=== PATIENT | female | born 1985 | race Caucasian/White ===

== ENCOUNTER 2016-08-25 19:05 | Emergency (ER) | payer OTHER ==
--- NOTE | 2016-08-25 20:46 | ED CLINICAL REPORT ---
Clinical Report - Physicians/Mid Levels [facility] [address] [place] [address] 08/25/2016 19:07 Patient: JEANNE RENEE Time Seen: 19:35; initial patient contact, initial documentation, patient care assumed. Arrived- By private vehicle. Historian- patient. HISTORY OF PRESENT ILLNESS Chief Complaint: FEVER. 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 The patient has had muscle aches and fatigue. No loss of appetite, cough or decreased oral intake. No decreased urine output. She has had severe diarrhea. This has occurred several times. It has been watery. No bloody, mucous containing or blood-tinged diarrhea. Additional history - The patient has had contact with a sick person at [employer]. (works at [employer]). Has not recently been ill. She is not immunocompromised. No organ transplant. No recent absolute neutrophil count. No recent hospitalization. No new medication recently administered. No history of cancer. No history of HIV illness. No indwelling line. No recent travel. No known exposure to an animal. No drug use. No alcohol recently. No Johnson catheter. Similar symptoms previously: None. Recent medical care: Not recently seen/assessed. REVIEW OF SYSTEMS The patient has had nausea. No constipation, black stools, difficulty with urination or flank pain. She has had vomiting (says she can't keep anything down). The vomiting has occurred several times and has been bilious. No feculent emesis, blood-tinged emesis, coffee-grounds emesis, frankly bloody emesis or unusually dark emesis. Denies current . All systems otherwise negative, except as recorded above. PAST HISTORY See nurses notes. PROBLEMS: Sinusitis. Gastroesophageal Reflux Disease. --:24 Wm Beyer RJuanito. ADDITIONAL SURGERIES: Dilatation & Curettage. --:24 Wm Beyer R.N. SOCIAL HISTORY Never smoker. Not exposed to second-hand smoke at home. No alcohol use or drug use. No recent travel. Is a local resident. FAMILY HISTORY Negative. ADDITIONAL NOTES The nursing notes have been reviewed with agreement regarding the chief complaint, HPI, ROS, PMH and patient medications and allergies. PHYSICAL EXAM Vital Signs: 08/25/2016 19:17 BP: 103/65. HR: 71. RR: 16. O2 saturation: 100%. Temp: 98.9 F. Pain level now: 0/10. Have been reviewed as normal and appear to be correct. Appearance: Alert. No acute distress. Eyes: Pupils equal, round and reactive to light. Eyes normal inspection. Neck: Normal inspection. Neck supple. CVS: Normal heart rate and rhythm. Heart sounds normal. Pulses normal. Respiratory: No respiratory distress. Breath sounds normal. Chest nontender. Abdomen: Soft and nontender. Bowel sounds normal. No organomegaly. No mass. Back: Normal inspection. Skin: Skin warm and dry. Normal skin color. No rash. Normal skin turgor. Extremities: Extremities exhibit normal ROM. Extremities nontender. Neuro: Oriented X 3. No motor deficit. No sensory deficit. LABS, X-RAYS, AND EKG Laboratory Tests: UA-Culture if indicated: (GARTH: 08/25/2016 20:05) ( [facility] 08/25/2016 20:17) IP Test Result Flag Units (Reference) URINE COLOR YELLOW URINE APPEARANCE CLEAR URINE GLUCOSE NEGATIVE (NEGATIVE) URINE BILIRUBIN NEGATIVE (NEGATIVE) URINE KETONE TRACE (NEGATIVE) URINE SPECIFIC GRAVITY >= 1.030 (1.010-1.030) URINE PH 6.0 (5.0-8.0) URINE PROTEIN NEGATIVE (NEGATIVE) URINE UROBILINOGEN 0.2 EU/dL (0.2-1.0) URINE NITRITE NEGATIVE (NEGATIVE) URINE BLOOD NEGATIVE (NEGATIVE) URINE LEUK ESTERASE NEGATIVE (NEGATIVE) Urine: (GARTH: 08/25/2016 20:05) ( [facility] 08/25/2016 20:19) Final results Test Result Flag Units (Reference) URINE NEGATIVE CBC w Diff: (GARTH: 08/25/2016 20:05) ( [facility] 08/25/2016 20:19) Final results Test Result Flag Units (Reference) WHITE BLOOD COUNT 4.5 K/uL (4.5-11.5) RED BLOOD COUNT 4.23 M/uL (4.00-5.20) HEMOGLOBIN 10.4 L gm/dL (12.0-16.0) HEMATOCRIT 32.3 L % (36.0-46.0) MEAN CELL VOLUME 76 L fL (80-100) MEAN CORPUSCULAR HGB 25 L pg (26-34) MEAN CORPUSCULAR HGB CONC 32 g/dL (31-37) RED CELL DISTRIBUTION WIDTH 15.3 H % (11.6-14.8) PLATELET COUNT 230 K/uL (150-400) NEUTROPHIL % 48.8 L % (50-75) LYMPH % 30.6 % (25-40) MONO % 18.4 H % (3-14) EOSINOPHIL % 1.8 % (0-4) BASOPHIL % 0.4 % (0-2) CMP: (GARTH: 08/25/2016 20:05) ( MsgRcvd 08/25/2016 20:34) Final results Test Result Flag Units (Reference) GLUCOSE 92 mg/dL (70-110) BUN 7 mg/dL (7-18) CREATININE 0.8 mg/dL (0.6-1.3) Estimated GFR >60 mL/min Estimated GFR- >60 mL/min Note: Persistent reduction over 3 months in eGFR<60 mL/min/1.73 m2 defines CKD. Patients with eGFR values>=60 mL/min/1.73 m2 may also have CKD if evidence ofpersistent proteinuria. Additional information may be foundat www.kidney.org. SODIUM 140 mmol/L (136-145) POTASSIUM 3.5 mmol/L (3.5-5.1) CHLORIDE 105 mmol/L (98-107) CARBON DIOXIDE 30 mmol/L (21-32) CALCIUM 8.6 mg/dL (8.5-10.1) TOTAL PROTEIN 7.6 g/dL (6.4-8.2) ALBUMIN 3.8 g/dL (3.3-5.0) BILIRUBIN, TOTAL 0.4 mg/dL (0.0-1.0) ALKALINE PHOSPHATASE 76 U/L (46-116) AST (SGOT) 25 U/L (15-37) ALT (SGPT) 27 U/L (12-78) LIPASE 136 U/L (73-393) AMYLASE 61 U/L (25-115) . PROGRESS AND PROCEDURES Course of Care: 08/25/2016 20:38 BP: 103/69. HR: 82. RR: 15. O2 saturation: 98%. Temp: 98.8 F. Pain level now: 0/10. Vital Signs: have been reviewed as normal and appear to be correct. Patient counseled in person regarding the patient's stable condition, test results and diagnosis. 20:41. Differential Diagnosis: I considered gastrointestinal etiology, mechanical causes, infectious etiology, drugs and as a possible cause of vomiting in this patient. This is a partial list of diagnoses considered. Above considerations are based on history, physical exam, reassessment and laboratory data. Differential diagnosis was discussed with patient. Disposition: Discharged home in good and improved condition (20:46). Condition: good and stable. CLINICAL IMPRESSION Acute noninfectious gastroenteritis. INSTRUCTIONS Do not work today, for two days. Take clear liquids only (frequent sips) for the next 24 hours until better. May continue medications with sips only. Advance diet as tolerated. (over the counter diarrhea medicine, as discussed). Warnings: GENERAL WARNINGS: Return or contact your physician immediately if your condition worsens or changes unexpectedly, if not improving as expected, or if other problems arise. Specifically return if problem worsens. Prescription Medications: Zofran 4 mg: Take 1 orally every six hours as needed for nausea/vomiting. Dispense ten (10). No refills. Substitution is permissible. Follow-up: Follow up with your doctor in about two days as needed. Call for an appointment. Summary of care provided to patient. Understanding of the discharge instructions verbalized by patient. (Electronically signed by Rae Franz A.R.N.P. 08/25/2016 22:12)
--- NOTE | 2016-08-25 20:46 | ED ORDER SUMMARY ---
..... Patient: JEANNE RENEE OrderSheet [facility] VisitID: [id number] [address] [place] [address] 31y, F Registration Date/Time: 08/25/2016 ORDER SHEET Weight: 56.6 kg (stated) Allergies: morphine GENERAL ORDERS: CBC w Diff Urgent (19:50 08/25/2016 HBivens A.R.N.P.) (Ack 19:54 AMcQuoid ER Tech1) (20:09 EHassan R.N.) CMP Urgent (19:50 08/25/2016 HBivens A.R.N.P.) (Ack 19:54 AMcQuoid ER Tech1) (20:09 EHassan R.N.) UA-Culture if indicated Urgent (19:50 08/25/2016 HBivens A.R.N.P.) (Ack 19:54 AMcQuoid ER Tech1) (20:09 EHassan R.N.) Amylase Urgent (19:50 08/25/2016 HBivens A.R.N.P.) (Ack 19:54 AMcQuoid ER Tech1) (20:09 EHassan R.N.) Lipase Urgent (19:50 08/25/2016 HBivens A.R.N.P.) (Ack 19:54 AMcQuoid ER Tech1) (20:09 EHassan R.N.) Urine Urgent (19:50 08/25/2016 HBivens A.R.N.P.) (Ack 19:54 AMcQuoid ER Tech1) (20:09 EHassan R.N.) MEDICATION ORDERS: IV FLUIDS: IV NS : initial bolus 1000 mL (1000 mL/hr), then none - (NOW) (19:50 08/25/2016 HBivens A.R.N.P.) (20:11 EHassan R.N.) Zofran IV 4 mg (NOW) (19:50 08/25/2016 HBivens A.R.N.P.) (20:11 EHassan R.N.) IV Saline Lock (19:50 08/25/2016 HBivens A.R.N.P.) (20:10 Rod R.N.) Reglan IV 10 mg (NOW) (20:41 08/25/2016 Mickey A.R.N.P.) (20:44 Rod R.N.) ORDER SHEET NOTES: [Electronically signed by Mary Jo Madrigal R.N. (21:25 08/25/2016)] [Electronically signed by Rae FranzN.PManolo (22:12 08/25/2016)] [Electronically locked/signed by Mary Jo Madrigal R.N. (21:25 08/25/2016)]
--- NOTE | 2016-08-25 20:46 | ED NURSING NOTES ---
Clinical Report - Nurses [facility] [place] [address] [place] [address] 08/25/2016 19:07 Patient: JEANNE RENEE TRIAGE Triage time 19:18 Aug 25 2016. Acuity: LEVEL 3. Chief Complaint: FEVER, possible FLU EXPOSURE and FATIGUE (diarrhea). Alert. SILVIANO COMA SCORE: [place] Coma Scale: 15- eyes open spontaneously (4); best verbal response- oriented x 4 (5); best motor response- obeys commands (6). --19:26 Wm Beyer R.N. 19:17 08/25/16. BP: 103/65. HR: 71. RR: 16. O2 saturation: 100% on room air. Temp: 98.9 F. Pain level now: 0/10. --19:26 Wm Beyer R.N. Weight: 56.6 kg stated. Height/Length: 64 inches Per Patient. BMI: 21.4. --19:23 Wm Beyer R.N. Medications Ibuprofen Oral, PRN. --19:23 Wm Beyer R.N. Tylenol Oral, as needed. --19:23 Wm Beyer R.N. Medication/allergy information source: the patient. --19:26 Wm Beyer R.N. Allergies morphine. Definite Moderate (Visual Hallucinations) --19:22 Wm Beyer R.N. History Arrived by private vehicle. Historian: patient. Unaccompanied. Primary physician ([place], [place]). ( Flu-like symptoms associated with N/V, dizziness, intermittent fever and weakness.). Onset. (about 5 days ago). She has had fatigue, a headache and diarrhea. 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 Symptoms did not improve after treatment. PAST MEDICAL HX: Immunizations: status is unknown. SOCIAL HX: Never smoker. No alcohol use or drug use. No recent travel. No infectious disease exposure. ABUSE ASSESSMENT: No report of abuse. FALL RISK ASSESSMENT: Fall risk assessment completed. No fall risk identified. NUTRITIONAL RISK ASSESSMENT: The nutritional risk assessment revealed no deficiencies. FUNCTIONAL ASSESSMENT: Functional assessment: no impairments noted. LEARNING NEEDS ASSESSMENT: The learning needs assessment revealed no barriers. SKIN INTEGRITY ASSESSMENT: Skin integrity risk assessment completed. No skin integrity risk identified. --19:26 Wm Beyer R.N. PROBLEMS: Sinusitis. Gastroesophageal Reflux Disease. --19:24 Wm Beyer R.N. ADDITIONAL SURGERIES: Dilatation & Curettage. --19:24 Wm Beyer R.N. Interventions ID and allergy band on patient. To treatment room. --19:26 Wm Beyer R.N. PHYSICAL ASSESSMENT Ambulatory to room. GENERAL / NEURO / PSYCH: Alert. Oriented X 4. RESPIRATORY: Respirations not labored. CVS: Cardiac rhythm: (RRR). Capillary refill less than 2 seconds. Pulses within normal limits. GI / : Abdomen soft. Abdominal tenderness in the lower abdomen. SKIN: Skin intact. Skin is warm and dry. Normal skin turgor. --19:27 Wm Beyer R.N. NURSING PROGRESS NOTES Patient gowned. Reassurance given. Patient identifiers checked. Call light placed in reach. Side rails up x 1. Bed placed in lowest position. Brakes of bed on. Patient ready for evaluation- chart flagged and ED physician notified. --19:27 Wm Beyer R.N. Care transferred and report received (LORENZO Burk). --19:30 Mary Jo Madrigal R.N. 20:05 08/25/2016 Site #1 started via IV in the right antecubital space with an 20g angiocath. Blood drawn: rainbow set. Labeled in the presence of the patient and sent to the lab. --20:11 Mary Jo Madrigal R.N. 20:08/25/2016 Started bag #1 1000 mL IV Fluids IV NS (Saline); at 1000 mL/hr over 1 hour(s) via site #1 via dial-a-flow. Allergies verified and confirmed 5 rights. IV patency established. IV site checked: no pain, redness, or swelling. IV flushed thoroughly pre- and post-medication administration. Completed per protocol. --20:11 Mary Jo Madrigal R.N. 20:08/25/2016 Zofran (Ondansetron HCl) IVP 4 mg given over 2 minute(s) via site #1. Allergies verified and confirmed 5 rights. IV patency established. IV site checked: no pain, redness, or swelling. IV flushed thoroughly pre- and post-medication administration. IVP given by RN. --20:11 Mary Jo Madrigal R.N. 20:38 08/25/16. BP: 103/69 (regular adult cuff) taken on the left arm, via an automated monitor, while sitting. HR: 82. RR: 15. O2 saturation: 98% on room air. Temp: 98.8 F (oral). Pain level now: 0/10. --20:40 Mary Jo Madrigal R.N. Reassurance given. Reassessment after fluids administered. She is calm and resting quietly. ( Pt states still feels n/v, even after med administration. Will monitor). Call light placed in reach. Side rails up x 1. --20:40 Mary Jo Madrigal R.N. 20:43 08/25/2016 Reglan (Metoclopramide HCl) IVP 10 mg given over 2 minute(s) via site #1. Allergies verified and confirmed 5 rights. IV patency established. IV site checked: no pain, redness, or swelling. IV flushed thoroughly pre- and post-medication administration. IVP given by RN. --20:44 Mary Jo Madrigal R.N. 20:43 08/25/2016 Zofran IVP Response: no adverse reaction symptoms are the same. The patient feels the same. --20:43 Mary Jo Madrigal R.N. 20:49 08/25/2016 IV Fluids IV NS Discontinued: STOPPED upon discharge. Total amount infused: 1000 mL. IV patency established. IV site checked: no pain, redness, or swelling. IV flushed thoroughly. --20:59 Puneet Conklin R.N. 20:51 08/25/2016 Site #1 removed upon discharge. Bandaid applied. --20:56 Puneet Conklin R.N. DISPOSITION / DISCHARGE Departure time: 2055. No learning barriers present. Discharge instructions provided and reviewed with the patient. Reviewed medication(s) dosing information. Work note given. Patient verbalized understanding. Written instructions provided in Sami. The patient was discharged by the nurse practitioner. She was discharged home. She left the Emergency Department ambulatory and via private vehicle. ( pt dc home only by this RN, ambulatory to lobby with steady gait, rx and f/u given, diet per SUBMARINE ADVISORY TEAM WATCH OFFICER gone over with pt and verbalizes understanding). --20:57 Puneet Conklin R.N. 20:56 08/25/16. BP: 107/59. HR: 82. RR: 15. O2 saturation: 100%. Temp: 98.3 F. Pain level now: 0/10. --20:57 Puneet Conklin R.N. Locked/Released at 08/25/2016 21:25 by Mary Jo Madrigal R.N.
--- NOTE | 2016-08-25 20:46 | ED NURSING NOTES ---
Clinical Report - Nurses [facility] [place] [address] [place] [address] 08/25/2016 19:07 Patient: JEANNE RENEE TRIAGE Triage time 19:18 Aug 25 2016. Acuity: LEVEL 3. Chief Complaint: FEVER, possible FLU EXPOSURE and FATIGUE (diarrhea). Alert. SILVIANO COMA SCORE: [place] Coma Scale: 15- eyes open spontaneously (4); best verbal response- oriented x 4 (5); best motor response- obeys commands (6). --19:26 Wm Beyer R.N. 19:17 08/25/16. BP: 103/65. HR: 71. RR: 16. O2 saturation: 100% on room air. Temp: 98.9 F. Pain level now: 0/10. --19:26 Wm Beyer R.N. Weight: 56.6 kg stated. Height/Length: 64 inches Per Patient. BMI: 21.4. --19:23 Wm Beyer R.N. Medications Ibuprofen Oral, PRN. --19:23 Wm Beyer R.N. Tylenol Oral, as needed. --19:23 Wm Beyer R.N. Medication/allergy information source: the patient. --19:26 Wm Beyer R.N. Allergies morphine. Definite Moderate (Visual Hallucinations) --19:22 Wm Beyer R.N. History Arrived by private vehicle. Historian: patient. Unaccompanied. Primary physician ([place], [place]). ( Flu-like symptoms associated with N/V, dizziness, intermittent fever and weakness.). Onset. (about 5 days ago). She has had fatigue, a headache and diarrhea. 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 Symptoms did not improve after treatment. PAST MEDICAL HX: Immunizations: status is unknown. SOCIAL HX: Never smoker. No alcohol use or drug use. No recent travel. No infectious disease exposure. ABUSE ASSESSMENT: No report of abuse. FALL RISK ASSESSMENT: Fall risk assessment completed. No fall risk identified. NUTRITIONAL RISK ASSESSMENT: The nutritional risk assessment revealed no deficiencies. FUNCTIONAL ASSESSMENT: Functional assessment: no impairments noted. LEARNING NEEDS ASSESSMENT: The learning needs assessment revealed no barriers. SKIN INTEGRITY ASSESSMENT: Skin integrity risk assessment completed. No skin integrity risk identified. --19:26 Wm Beyer R.N. PROBLEMS: Sinusitis. Gastroesophageal Reflux Disease. --19:24 Wm Beyer R.N. ADDITIONAL SURGERIES: Dilatation & Curettage. --19:24 Wm Beyer R.N. Interventions ID and allergy band on patient. To treatment room. --19:26 Wm Beyer R.N. PHYSICAL ASSESSMENT Ambulatory to room. GENERAL / NEURO / PSYCH: Alert. Oriented X 4. RESPIRATORY: Respirations not labored. CVS: Cardiac rhythm: (RRR). Capillary refill less than 2 seconds. Pulses within normal limits. GI / : Abdomen soft. Abdominal tenderness in the lower abdomen. SKIN: Skin intact. Skin is warm and dry. Normal skin turgor. --19:27 Wm Beyer R.N. NURSING PROGRESS NOTES Patient gowned. Reassurance given. Patient identifiers checked. Call light placed in reach. Side rails up x 1. Bed placed in lowest position. Brakes of bed on. Patient ready for evaluation- chart flagged and ED physician notified. --19:27 Wm Beyer R.N. Care transferred and report received (LORENZO Burk). --19:30 Mary Jo Madrigal R.N. 20:05 08/25/2016 Site #1 started via IV in the right antecubital space with an 20g angiocath. Blood drawn: rainbow set. Labeled in the presence of the patient and sent to the lab. --20:11 Mary Jo Madrigal R.N. 20:08/25/2016 Started bag #1 1000 mL IV Fluids IV NS (Saline); at 1000 mL/hr over 1 hour(s) via site #1 via dial-a-flow. Allergies verified and confirmed 5 rights. IV patency established. IV site checked: no pain, redness, or swelling. IV flushed thoroughly pre- and post-medication administration. Completed per protocol. --20:11 Mary Jo Madrigal R.N. 20:08/25/2016 Zofran (Ondansetron HCl) IVP 4 mg given over 2 minute(s) via site #1. Allergies verified and confirmed 5 rights. IV patency established. IV site checked: no pain, redness, or swelling. IV flushed thoroughly pre- and post-medication administration. IVP given by RN. --20:11 Mary Jo Madrigal R.N. 20:38 08/25/16. BP: 103/69 (regular adult cuff) taken on the left arm, via an automated monitor, while sitting. HR: 82. RR: 15. O2 saturation: 98% on room air. Temp: 98.8 F (oral). Pain level now: 0/10. --20:40 Mary Jo Madrigal R.N. Reassurance given. Reassessment after fluids administered. She is calm and resting quietly. ( Pt states still feels n/v, even after med administration. Will monitor). Call light placed in reach. Side rails up x 1. --20:40 Mary Jo Madrigal R.N. 20:43 08/25/2016 Reglan (Metoclopramide HCl) IVP 10 mg given over 2 minute(s) via site #1. Allergies verified and confirmed 5 rights. IV patency established. IV site checked: no pain, redness, or swelling. IV flushed thoroughly pre- and post-medication administration. IVP given by RN. --20:44 Mary Jo Madrigal R.N. 20:43 08/25/2016 Zofran IVP Response: no adverse reaction symptoms are the same. The patient feels the same. --20:43 Mary Jo Madrigal R.N. 20:49 08/25/2016 IV Fluids IV NS Discontinued: STOPPED upon discharge. Total amount infused: 1000 mL. IV patency established. IV site checked: no pain, redness, or swelling. IV flushed thoroughly. --20:59 Puneet Conklin R.N. 20:51 08/25/2016 Site #1 removed upon discharge. Bandaid applied. --20:56 Puneet Conklin R.N. DISPOSITION / DISCHARGE Departure time: 2055. No learning barriers present. Discharge instructions provided and reviewed with the patient. Reviewed medication(s) dosing information. Work note given. Patient verbalized understanding. Written instructions provided in Indonesian. The patient was discharged by the nurse practitioner. She was discharged home. She left the Emergency Department ambulatory and via private vehicle. ( pt dc home only by this RN, ambulatory to lobby with steady gait, rx and f/u given, diet per CLASSIFIED ADVERTISING MANAGER gone over with pt and verbalizes understanding). --20:57 Puneet Conklin R.N. 20:56 08/25/16. BP: 107/59. HR: 82. RR: 15. O2 saturation: 100%. Temp: 98.3 F. Pain level now: 0/10. --20:57 Puneet Conklin R.N. Locked/Released at 08/25/2016 21:25 by Mary Jo Madrigal R.N.
--- NOTE | 2016-08-25 20:46 | ED ORDER SUMMARY ---
..... Patient: JEANNE RENEE OrderSheet [facility] VisitID: [id number] [address] [place] [address] 31y, F Registration Date/Time: 08/25/2016 ORDER SHEET Weight: 56.6 kg (stated) Allergies: morphine GENERAL ORDERS: CBC w Diff Urgent (19:50 08/25/2016 HBivens A.R.N.P.) (Ack 19:54 AMcQuoid ER Tech1) (20:09 EHassan R.N.) CMP Urgent (19:50 08/25/2016 HBivens A.R.N.P.) (Ack 19:54 AMcQuoid ER Tech1) (20:09 EHassan R.N.) UA-Culture if indicated Urgent (19:50 08/25/2016 HBivens A.R.N.P.) (Ack 19:54 AMcQuoid ER Tech1) (20:09 EHassan R.N.) Amylase Urgent (19:50 08/25/2016 HBivens A.R.N.P.) (Ack 19:54 AMcQuoid ER Tech1) (20:09 EHassan R.N.) Lipase Urgent (19:50 08/25/2016 HBivens A.R.N.P.) (Ack 19:54 AMcQuoid ER Tech1) (20:09 EHassan R.N.) Urine Urgent (19:50 08/25/2016 HBivens A.R.N.P.) (Ack 19:54 AMcQuoid ER Tech1) (20:09 EHassan R.N.) MEDICATION ORDERS: IV FLUIDS: IV NS : initial bolus 1000 mL (1000 mL/hr), then none - (NOW) (19:50 08/25/2016 HBivens A.R.N.P.) (20:11 EHassan R.N.) Zofran IV 4 mg (NOW) (19:50 08/25/2016 HBivens A.R.N.P.) (20:11 EHassan R.N.) IV Saline Lock (19:50 08/25/2016 HBivens A.R.N.P.) (20:10 Rod R.N.) Reglan IV 10 mg (NOW) (20:41 08/25/2016 Mickey A.R.N.P.) (20:44 Rod R.N.) ORDER SHEET NOTES: [Electronically signed by Mary Jo Madrigal R.N. (21:25 08/25/2016)] [Electronically signed by Rae FranzN.PManolo (22:12 08/25/2016)] [Electronically locked/signed by Mary Jo Madrigal R.N. (21:25 08/25/2016)]
--- NOTE | 2016-08-25 22:12 | ED MED RECONCILIATION SUMMARY ---
Patient: JEANNE RENEE Medication Reconciliation Report [facility] VisitID: [id number] [address] [place] [address] 31y, F Registration Date/Time: 08/25/2016 Weight: 56.6 kg Height/Length: 64 in. BMI: 21.4 ALLERGIES: morphine The patient's Home Medications are listed below: THE FOLLOWING MEDICATIONS NEED TO BE RECONCILED: Ibuprofen Oral, PRN Tylenol Oral The source(s) of the original Home Medication information: patient The following Medications were given to the patient in the Emergency Department: IV NS IV Fluids bolus 0, then 1000 mL/hr, administered: 08/25/2016 8:11:00 PM Zofran [IVP] IVP 4 mg, administered: 08/25/2016 8:11:00 PM Reglan [IVP] IVP 10 mg, administered: 08/25/2016 8:43:00 PM The following Medications were prescribed to the patient: Zofran 4 mg: Take 1 orally every six hours as needed for nausea/vomiting. Dispense ten (10). No refills. Substitution is permissible. -- Rae Franz A.R.N.P.
--- NOTE | 2016-08-25 22:12 | ED DISCHARGE INSTRUCTIONS ---
Patient: JEANNE RENEE General Instructions [facility] VisitID: [id number] [place] [address] 31y, F Registration Date/Time: 08/25/2016 Acute noninfectious gastroenteritis. INSTRUCTIONS Do not work today, for two days. Take clear liquids only (frequent sips) for the next 24 hours until better. May continue medications with sips only. Advance diet as tolerated. (over the counter diarrhea medicine, as discussed). Warnings: GENERAL WARNINGS: Return or contact your physician immediately if your condition worsens or changes unexpectedly, if not improving as expected, or if other problems arise. Specifically return if problem worsens. Prescription Medications: Zofran 4 mg: Take 1 orally every six hours as needed for nausea/vomiting. Dispense ten (10). No refills. Substitution is permissible. Follow-up: Follow up with your doctor in about two days as needed. Call for an appointment. Summary of care provided to patient. Understanding of the discharge instructions verbalized by patient. ADDITIONAL INFORMATION Gastroenteritis [Non-Infectious, 6 Yr-Adult] Your symptoms today are coming from the intestinal tract. This may occur as a result of food sensitivity, inflammation of the GI tract, medicines, stress or other causes not related to infection. This may last from 1-3 days. Antibiotics are not effective, but simple home treatment will be helpful. Home Care: If symptoms are severe, rest at home for the next 24 hours. You may use acetaminophen (Tylenol) or ibuprofen (Motrin, Advil) to control fever, unless another medicine was prescribed. [NOTE: If you have chronic liver or kidney disease or ever had a stomach ulcer or GI bleeding, talk with your doctor before using these medicines.] (Aspirin should never be used in anyone under 18 years of age who is ill with a fever. It may cause severe liver damage.) Avoid tobacco and alcohol use, which may make your symptoms worse. If medicines for diarrhea or vomiting were prescribed, take only as directed. Once vomiting stops, then follow these guidelines: During The First 12-24 Hours follow the diet below: gingerale, mineral water (plain or flavored), decaffeinated tea and coffee. During The Next 24 Hours you may add the following to the above: DURING THE NEXT 24 HOURS Gradually resume a normal diet, as you feel better and your symptoms lessen. Follow Up with your doctor as advised if you are not improving over the next 2-3 days. If a stool (diarrhea) sample was taken, you may call in 2 days (or as directed) for the results. Get Prompt Medical Attention if any of the following occur: Increasing abdominal pain or constant lower right abdominal pain Continued vomiting (unable to keep liquids down) Frequent diarrhea (more than 5 times a day) Blood in vomit or stool (black or red color) Reduced oral intake Dark urine, reduced urine output Weakness, dizziness, fainting Drowsiness, confusion, stiff neck or seizure Fever of 100.4F (38C) or higher, or as directed by your healthcare provider New rash Clear Liquid Diet Clear liquids are any liquid that you can see through as well as those that are very easy to digest. This is used while the body is recovering from irritation or infection of the stomach or intestinal tract. It may also be used before special procedures or surgery. This diet is to be used no more than three days. You may include the following items. Adults Adults should drink a total of 23 quarts of liquid per day. It may be easier to drink small frequent servings rather than a few large ones. Liquids can include: Fruit juices.Strained orange juice or lemonade (no pulp), apple, grape and cranberry juice, clear fruit drinks, sports drinks Beverages.Sport drinks, sodas, mineral water (plain or flavored), tea, black coffee, liquid gelatin (add twice the recommended amount of water) Soups.Clear broth, consomm, bouillon Desserts.Plain gelatin, popsicles, fruit juice bars Children Over 2 years old The following liquids are acceptable for children over age 2: Fruit juices.Strained orange juice or lemonade (no pulp), apple, grape and cranberry juice, clear fruit drinks Beverages. Sports drinks, sodas, mineral water (plain or flavored), tea, liquid gelatin (add twice the recommended amount of water) Soups. Clear broth, consomm, bouillon Desserts. Plain gelatin, popsicles, fruit juice bars Children under 2 years old Oral rehydration fluids such are available at drug stores and most grocery stores without a prescription. [place] Diet A bland diet is used for patients with an upset stomach. It consists of foods that are mild and easy to digest. It is better to eat small frequent meals rather than three large meals a day. BEVERAGES OK: Fruit juices, non-caffeinated teas and coffee, non-carbonated [place]omas AVOID: Carbonated beverage, caffeinated tea and coffee, all alcoholic beverages BREAD OK: Refined white, wheat or rye bread, jen or soda crackers, [place] toast, plain rolls, bagels AVOID: Whole-grain bread CEREAL OK: Refined cereals: cooked or ready to eat AVOID: Whole grain cereals and granola, or those containing bran, seeds or nuts DESSERTS OK: Peanut butter and all others except those to "avoid" AVOID: Chocolate, cocoa, coconut, popcorn, nuts, seeds, jam, marmalade FRUITS OK: Canned, cooked, frozen or fresh fruits without seeds or tough skin AVOID: Olives, skin and seeds of fruit MEATS OK: All fresh or preserved meat, fish and fowl AVOID: Any that are prepared with those spices to "avoid" CHEESE & EGGS OK: Eggs, cottage cheese, cream cheese, other cheeses AVOID: All cheeses made with those spices to "avoid" POTATOES & PASTA OK: Potato, rice, macaroni, noodles, spaghetti AVOID: None SOUPS OK: All soups without heavy seasoning AVOID: Soups made with those spices to "avoid" VEGETABLES OK: Canned, cooked, fresh or frozen mildly flavored vegetables without seeds, skins or coarse fiber AVOID: Vegetables prepared with those spices to "avoid"; skin and seeds of vegetables and those with coarse fiber SPICES OK: Salt, lemon and [place] juice, vinegar, all extracts, moncho, cinnamon, thyme, mace, allspice, paprika AVOID: [place] powder, cloves, pepper, seed spices, garlic, gravy pickles, highly seasoned salad dressings Clear Liquid Diet Clear liquids are any liquid that you can see through as well as those that are very easy to digest. This is used while the body is recovering from irritation or infection of the stomach or intestinal tract. It may also be used before special procedures or surgery. This diet is to be used no more than three days. You may include the following items. Adults Adults should drink a total of 23 quarts of liquid per day. It may be easier to drink small frequent servings rather than a few large ones. Liquids can include: Fruit juices.Strained orange juice or lemonade (no pulp), apple, grape and cranberry juice, clear fruit drinks, sports drinks Beverages.Sport drinks, sodas, mineral water (plain or flavored), tea, black coffee, liquid gelatin (add twice the recommended amount of water) Soups.Clear broth, consomm, bouillon Desserts.Plain gelatin, popsicles, fruit juice bars Children Over 2 years old The following liquids are acceptable for children over age 2: Fruit juices.Strained orange juice or lemonade (no pulp), apple, grape and cranberry juice, clear fruit drinks Beverages. Sports drinks, sodas, mineral water (plain or flavored), tea, liquid gelatin (add twice the recommended amount of water) Soups. Clear broth, consomm, bouillon Desserts. Plain gelatin, popsicles, fruit juice bars Children under 2 years old Oral rehydration fluids such are available at drug stores and most grocery stores without a prescription. Ondansetron Oral disintegrating tablet What is this medicine? ONDANSETRON (on JACQUI se edgar) is used to treat nausea and vomiting caused by chemotherapy. It is also used to prevent or treat nausea and vomiting after surgery. How should I use this medicine? These tablets are made to dissolve in the mouth. Do not try to push the tablet through the foil backing. With dry hands, peel away the foil backing and gently remove the tablet. Place the tablet in the mouth and allow it to dissolve, then swallow. While you may take these tablets with water, it is not necessary to do so. Talk to your tanker serviceman regarding the use of this medicine in children. Special care may be needed. What side effects may I notice from receiving this medicine? Side effects that you should report to your doctor or health director of patient care as soon as possible: allergic reactions like skin rash, itching or hives, swelling of the face, lips, or tongue breathing problems dizziness fast or irregular heartbeat feeling faint or lightheaded, falls fever and chills swelling of the hands and feet tightness in the chest Side effects that usually do not require medical attention (report to your doctor or health director of patient care if they continue or are bothersome): constipation or diarrhea headache What may interact with this medicine? Do not take this medicine with any of the following medications: -apomorphine -cisapride -dofetilide -dronedarone -pimozide -thioridazine -ziprasidone This medicine may also interact with the following medications: -carbamazepine -phenytoin -rifampicin -tramadol -other medicines that prolong the QT interval (cause an abnormal heart rhythm) What if I miss a dose? If you miss a dose, take it as soon as you can. If it is almost time for your next dose, take only that dose. Do not take double or extra doses. Where should I keep my medicine? Keep out of the reach of children. Store between 2 and 30 degrees C (36 and 86 degrees F). Throw away any unused medicine after the expiration date. What should I tell my health care provider before I take this medicine? They need to know if you have any of these conditions: heart disease history of irregular heartbeat liver disease low levels of magnesium or potassium in the blood an unusual or allergic reaction to ondansetron, granisetron, other medicines, foods, dyes, or preservatives or trying to get breast-feeding What should I watch for while using this medicine? Check with your doctor or health director of patient care as soon as you can if you have any sign of an allergic reaction. You have been given the following additional information: Gastroenteritis, Non-Infectious (Child) (Adult) Diet, Clear Liquid Diet, [place] (Adult) Diet, Clear Liquid Ondansetron Oral disintegrating tablet Do not work today, for two days. (Electronically signed by Rae Franz A.R.N.P. 08/25/2016 22:12)
--- NOTE | 2016-08-25 22:12 | ED MAR SUMMARY ---
..... Medication Administration Record [facility] [address] [place] [address] Patient: JEANNE RENEE Visit ID: [id number] 31y, F Weight: 56.6 kg Height/Length: 64 in BMI: 21.4 ALLERGIES: morphine Start 20:11 08/25/2016 Mary Jo Madrigal R.N., Stop 20:49 08/25/2016 Puneet Conklin R.N. Medication Administered: IV NS (SALINE), Dose: IV Fluids over 1 hour(s), Rate: 1000 mL/hr, Dispensed: 1000 mL bag, Site: #1 right AC. Medication Ordered: IV NS : initial bolus 1000 mL (1000 mL/hr), then none - (NOW). Given 20:11 08/25/2016 Mary Jo Madrigal R.N. Medication Administered: ZOFRAN [IVP] (ONDANSETRON HCL), Dose: 4 mg IVP over 2 minute(s), Site: #1 right AC. Medication Ordered: Zofran IV 4 mg (NOW). Given 20:43 08/25/2016 Mary Jo Madrigal R.N. Medication Administered: REGLAN [IVP] (METOCLOPRAMIDE HCL), Dose: 10 mg IVP over 2 minute(s), Site: #1 right AC. Medication Ordered: Reglan IV 10 mg (NOW).
--- NOTE | 2016-08-25 22:12 | ED MAR SUMMARY ---
..... Medication Administration Record [facility] [address] [place] [address] Patient: JEANNE RENEE Visit ID: [id number] 31y, F Weight: 56.6 kg Height/Length: 64 in BMI: 21.4 ALLERGIES: morphine Start 20:11 08/25/2016 Mary Jo Madrigal R.N., Stop 20:49 08/25/2016 Puneet Conklin R.N. Medication Administered: IV NS (SALINE), Dose: IV Fluids over 1 hour(s), Rate: 1000 mL/hr, Dispensed: 1000 mL bag, Site: #1 right AC. Medication Ordered: IV NS : initial bolus 1000 mL (1000 mL/hr), then none - (NOW). Given 20:11 08/25/2016 Mary Jo Madrigal R.N. Medication Administered: ZOFRAN [IVP] (ONDANSETRON HCL), Dose: 4 mg IVP over 2 minute(s), Site: #1 right AC. Medication Ordered: Zofran IV 4 mg (NOW). Given 20:43 08/25/2016 Mary Jo Madrigal R.N. Medication Administered: REGLAN [IVP] (METOCLOPRAMIDE HCL), Dose: 10 mg IVP over 2 minute(s), Site: #1 right AC. Medication Ordered: Reglan IV 10 mg (NOW).
--- NOTE | 2016-08-25 22:12 | ED MED RECONCILIATION SUMMARY ---
Patient: JEANNE RENEE Medication Reconciliation Report [facility] VisitID: [id number] [address] [place] [address] 31y, F Registration Date/Time: 08/25/2016 Weight: 56.6 kg Height/Length: 64 in. BMI: 21.4 ALLERGIES: morphine The patient's Home Medications are listed below: THE FOLLOWING MEDICATIONS NEED TO BE RECONCILED: Ibuprofen Oral, PRN Tylenol Oral The source(s) of the original Home Medication information: patient The following Medications were given to the patient in the Emergency Department: IV NS IV Fluids bolus 0, then 1000 mL/hr, administered: 08/25/2016 8:11:00 PM Zofran [IVP] IVP 4 mg, administered: 08/25/2016 8:11:00 PM Reglan [IVP] IVP 10 mg, administered: 08/25/2016 8:43:00 PM The following Medications were prescribed to the patient: Zofran 4 mg: Take 1 orally every six hours as needed for nausea/vomiting. Dispense ten (10). No refills. Substitution is permissible. -- Rae Franz A.R.N.P.
== END 2016-08-25 20:56 | disposition home or self-care (01) ==
LOC: ED SRH 19:05
DX: K52.9 Noninfective gastroenteritis and colitis, unspecified (principal); K21.9 Gastro-esophageal reflux disease without esophagitis; Z88.5 Allergy status to narcotic agent
CPT/HCPCS: 90004; 90100; 92235; 92530; 93070; 95059